=== PATIENT | male | born 1985 | race African-American/Black ===

== ENCOUNTER 2018-04-01 20:29 | Emergency (ER) | payer SELFPAY ==
[~2018-04-01] VITALS: Ht 172.7 cm; Wt 62.0 kg
[2018-04-01] MEDS ORDERED: BACITRACIN ZINC OINT UDPKT TOP ONE (23:45)
[2018-04-02 00:01] VITALS: BP 115/72
== END 2018-04-02 00:04 | disposition home or self-care (01) ==
LOC: ER 20:29
DX: S61.511A Laceration without foreign body of right wrist, initial encounter (principal); W25.XXXA Contact with sharp glass, initial encounter; Y93.89 Activity, other specified; Y92.89 Other specified places as the place of occurrence of the external cause; Y99.8 Other external cause status
CPT/HCPCS: 99283